=== PATIENT | female | born 1980 | race Caucasian/White ===

== ENCOUNTER 2016-09-04 12:57 | Observation (INO) | payer OTHER ==
[~2016-09-04] VITALS: Ht 160 cm; Wt 72.6 kg
--- NOTE | ~2016-09-04 | OR ---
PATIENT'S NAME: JOSHUA CURTIS [facility] AGE: 35 Y [address] ROOM: [address] [address] LOCATION: [facility] ADMIT DATE: 09/04/2016 OR/Procedure Report DISCHARGE DATE: FAMILY PHYSICIAN: PHYSICIAN, NO ATTENDING PHYSICIAN: JAIR CRUMP SURGEON: Jair Crump MD QI SPECIALIST: DATE OF PROCEDURE: 09/04/2016 PREOPERATIVE DIAGNOSIS: Ruptured ectopic . POSTOPERATIVE DIAGNOSIS: Ruptured ectopic . PROCEDURE PERFORMED: Laparoscopic right salpingectomy and evacuation of hemoperitoneum. ANESTHESIA: General. FINDINGS: 1 liter of clotted blood in the abdomen upon injury, ruptured ectopic in right fallopian tube near the cornua. Normal right ovary, left ovary, and fallopian tube adhered together. Normal uterus with 1 cm anterior subserosal fibroid. COMPLICATIONS: None. ESTIMATED BLOOD LOSS: 10 mL. INDICATIONS: The patient is a 35-year-old female with LMP making her around 11 weeks' . She presented to the ER complaining of abdominal pain. Her beta HCG quant was 2200 and she had an ultrasound that showed blood in the pelvis. Surgical exploration was recommended. Please see prior consent note in her H and P. DESCRIPTION OF PROCEDURE: The patient was taken to the operating room where she was placed under general anesthesia without complications. She was placed in dorsal lithotomy position. She was then prepped and draped in the usual sterile fashion. SCDs were in place. A speculum was placed in the patient's vagina. The cervix was visualized and a Hulka tenaculum was placed. The speculum was removed. Gloves were changed. 0.25% Marcaine was injected infraumbilically and a 5 mm incision was made. The Veress needle was placed into the abdomen and saline dropped through. Gas was hooked up on opening pressures less than 8 mmHg. The abdomen was insufflated to 15 mmHg. A 5 mm trocar was then placed. The camera was placed through this, and hemoperitoneum was noted with about a liter of clotted blood. 0.25% Marcaine was then injected in the left lower quadrant 2 cm superior and 2 cm medial to PATIENT'S NAME: JOSHUA CURTIS [facility] AGE: 35 Y [address] ROOM: [facility] [place], [place] [address] LOCATION: [facility] ADMIT DATE: 09/04/2016 OR/Procedure Report DISCHARGE DATE: FAMILY PHYSICIAN: , MAYI ATTENDING PHYSICIAN: JAIR CRUMP the anterior-superior iliac spine. A 10 mm incision was made. A 10 mm trocar was then placed. Evacuation of the hemoperitoneum was then performed, and a right ruptured ectopic was noted in the right fallopian tube just adjacent to the uterus. 0.25% Marcaine was injected in the right lower quadrant 2 cm superior and 2 cm medial to the anterior-superior iliac spine. A 5 mm incision was made and a 5 mm trocar was placed. The left fallopian tube and ovary were adhered together using the LigaSure device. The right fallopian tube was cauterized and cut along its entirety to where it meets the uterus. This was removed in an EndoCatch bag at the 10/11 port. Irrigation was again performed. Hemostasis was noted. All trocars were removed. The 10- mm port was closed 0 Polysorb. The fascia of this area was closed with 0 Polysorb suture. The incisions were then closed with 4-0 Polysorb in a subcuticular fashion. Steri-Strips and Band-Aids were placed for dressings. The speculum was replaced in the patient's vagina and the Hulka tenaculum was removed. Hemostasis was noted. Instruments, sponge, and needle counts were correct at the conclusion of the case. DISPOSITION: The patient was taken to the PACU in stable condition. MD JASBIR GRIFFIN/grisel /[id number] d: 09/05/16 0044 t: 09/12/16 0847, OPERATIVE SUMMARY
--- NOTE | ~2016-09-04 | ER ---
PATIENT'S NAME: JOSHUA CURTIS [facility] AGE: 35 Y [address] ROOM: [place] [address] LOCATION: [facility] ADMIT DATE: 09/04/2016 ER/Outpatient Report DISCHARGE DATE: 09/05/2016 FAMILY PHYSICIAN: PHYSICIAN, NO ATTENDING PHYSICIAN: Jair Crump TIME OF ARRIVAL: 1257 hours. TIME SEEN: 1312 hours. IDENTIFICATION: A 35-year-old female. CHIEF COMPLAINT: Abdominal pain. HISTORY OF PRESENT ILLNESS: The patient is a 35-year-old female who presents with syncope, vomiting, diarrhea, and abdominal pain. The patient had 2-3 small emesis. She has a diffuse abdominal pain and diarrhea x2. No blood in her stools. No dark, tarry, or black stools. She is lightheaded and actually passed out one time, she did not hit her head, and no loss of consciousness. She states that she had a miscarriage of August [address] was [address] Crump with a negative ultrasound at that time. The patient has also had some dysuria and felt like maybe she had a UTI, but has had no fever. ALLERGIES: NO KNOWN DRUG ALLERGIES. CURRENT MEDICATIONS: No current medications. MEDICAL PROBLEMS: No medical problems. SURGERIES: Prior surgeries include an appendectomy. FAMILY HISTORY: No pertinent family history identified. REVIEW OF SYSTEMS: Negative other than what is noted in the HPI. PATIENT'S NAME: JOSHUA CURTIS [facility] AGE: 35 Y [address] ROOM: [place] [address] LOCATION: [facility] ADMIT DATE: 09/04/2016 ER/Outpatient Report DISCHARGE DATE: 09/05/2016 FAMILY PHYSICIAN: PHYSICIAN, NO ATTENDING PHYSICIAN: Jair Crump PHYSICAL EXAMINATION: VITAL SIGNS: Blood pressure initially 93/52, pulse 84, temp 98.3, and sats 99% on room air. GENERAL: A 35-year-old female who appears acutely ill and is very pale and lightheaded. HEENT: Head: Normocephalic, atraumatic. Ears: TMs translucent both ears. Eyes: Pupils equal and reactive to light and accommodation. Extraocular movements intact. Nose: Mucosa pink. No lesions. Mouth: No lesions. Pharynx benign. NECK: Supple. No lymphadenopathy. LUNGS: Clear to auscultation. Breath sounds are equal. HEART: Regular rate and rhythm. ABDOMEN: Hypoactive bowel sounds. Slightly distended. Diffusely tender to minimal palpation. She does have some rebound and guarding. PELVIC: Exam not performed. EXTREMITIES: No edema. NEURO: The patient is alert and oriented x4. Cranial nerves 2 through 12 grossly intact. Motor strength 5/5 throughout. Sensation is intact to light touch. EMERGENCY DEPARTMENT COURSE: A 1 L of IV fluids was bolused at this time. Blood pressure improved to 104/51 and 117/51, heart rate remained 68-80. Stool was sent and C. diff negative. Procalcitonin less than 0.05. Lactate 1.7. Hemoglobin 11.6, hematocrit 35.5, platelets 221, white count 19,000 with 91% neutrophils. Sodium 141, potassium 4.2, chloride 107, CO2 22, BUN 9, and creatinine 0.7. Blood sugar 114. Liver enzymes normal. UA: Specific gravity 1.010, pH 8, 0- 2 white cells, 0-2 red cells, 2-5 epithelial cells, and few bacteria. O and P screen was negative. Stool culture pending fecal leukocytes, few white blood cells, occult blood negative. HCG 2282. Repeat hemoglobin at 1424 hours, which was just over 1 hour from the original was 11.7. INR is 1.0. Transvaginal ultrasound suspected blood within the pelvis and abdomen raising the concern of a ruptured ectopic, there is some heterogenicity and slight increased thickness of the endometrium measuring up to 11-mm, heterogeneous fluid was present throughout the pelvis with hypoechoic fluid adjacent to the liver and spleen concerning for hemorrhage. IMPRESSION: Ruptured ectopic . PLAN: The patient was resuscitated with volume IV fluids here in the emergency room. Hemoglobin was stable so clot was obtained and Dr. Crump was emergently consulted. The patient arrived to the emergency room at 1257 hours and was PATIENT'S NAME: JOSHUA CURTIS [facility] AGE: 35 Y [address] ROOM: [place] [address] LOCATION: [facility] ADMIT DATE: 09/04/2016 ER/Outpatient Report DISCHARGE DATE: 09/05/2016 FAMILY PHYSICIAN: PHYSICIAN, NO ATTENDING PHYSICIAN: Jair Crump seen at 1312 hours and was taken to the operating room at 1511 hours. Thirty minutes of critical care was provided in the emergency room for volume resuscitation for the hypotension and consultation with Radiology and Dr. Crump. MD JOE MEHTA/grisel /[id number] d: 09/05/167 t: 09/06/16 1427, OUTPATIENT REPORT
--- NOTE | ~2016-09-04 | HP ---
PATIENT'S NAME: JOSHUA CURTIS [facility] AGE: 35 Y [address] ROOM: [place] [address] LOCATION: [facility] ADMIT DATE: 09/04/2016 History & Physical DISCHARGE DATE: FAMILY PHYSICIAN: PHYSICIAN, NO ATTENDING PHYSICIAN: NICK ROTHMAN DATE OF SERVICE: CHIEF COMPLAINT: Abdominal pain. HISTORY OF PRESENT ILLNESS: The patient is a 35-year-old female, who presented to the ER with abdominal pain starting this morning. She did feel like over the past few days she had a UTI, but this morning, she had a sharp abdominal pain. Upon arrival to the ER, she was noted to have a blood pressure that was systolically in the 90s and appeared pale. Hemoglobin was checked and found to be 11.6. Beta quant hCG was checked and found to be 2282. An ultrasound was done that showed blood in the abdomen, likely a ruptured ectopic. The patient's white blood cell count was also noted to be elevated at 19. Procalcitonin was negative at 0.05, and her urinalysis was negative. PAST MEDICAL HISTORY: None. PAST SURGICAL HISTORY: Open appendectomy at age 6 for a nonruptured appendix. MEDICATIONS: None. ALLERGIES: NONE. FAMILY HISTORY: Noncontributory. REVIEW OF SYSTEMS: Negative except as noted in the HPI. SOCIAL HISTORY: The patient denies alcohol, tobacco, or drug use. PHYSICAL EXAMINATION: ABDOMEN: Soft, tender diffusely throughout. PATIENT'S NAME: JOSHUA CURTIS [facility] AGE: 35 Y [address] ROOM: [place] [address] LOCATION: [facility] ADMIT DATE: 09/04/2016 History & Physical DISCHARGE DATE: FAMILY PHYSICIAN: PHYSICIAN, NO ATTENDING PHYSICIAN: NICK ROTHMAN LABORATORY DATA: Hemoglobin initial check was 11.6; 2 hours later, it was 11.7. ASSESSMENT: The patient is a 35-year-old female with likely ruptured ectopic . PLAN: We will proceed to OR for laparoscopy evacuation of hemoperitoneum and removal of ectopic . The patient was counseled that this could be either in her fallopian tubes or ovaries which was not clear on the ultrasound and may necessitate removing one of her fallopian tubes and/or one of her ovaries. The patient was counseled about the risks of surgery to include, but are not be limited to bleeding, infection, damage to surrounding organs and tissues, including bowel, bladder, blood vessels, ureters, and nerves. She was also counseled on the possibility of needing to convert to laparotomy. She is also counseled on the possibility of needing additional procedures or hospitalizations due to any complications. The patient and her indicate understanding and consents were signed. MD JASBIR GRIFFIN/grisel /[id number] D: [id number] T: [id number] HISTORY & PHYSICAL
[2016-09-04 13:32] LABS: BASOPHIL # 0.1 K/uL (0.0-0.2); BASOPHIL % 0.3 %; EOSINOPHIL % 0.1 %; HEMATOCRIT 35.5 % (33.0-46.0); HEMOGLOBIN 11.6 g/dL (11.0-15.0); IMMATURE GRANULOCYTE # 0.1 K/uL (0.0-0.3); IMMATURE GRANULOCYTE % 0.4 %; LYMPHOCYTE % 5.1 %; MCH 28.8 pg (27.0-34.0); MCHC 32.7 gm/dL (32.0-36.5); MCV 88.1 fl (83.0-98.0); MONOCYTE # 0.5 K/uL (0.0-1.0); MONOCYTE % 2.7 %; MPV 11.7 fl (9.4-12.4); NEUTROPHIL # (ANC) 17.3 K/uL (1.8-7.8); NEUTROPHIL % 91.4 %; NRBC % 0 /100WBC (0-0.00); PLATELET COUNT 221 K/uL (150-450); RBC 4.03 M/uL (3.50-5.50); RDW-CV 12.7 % (11.9-14.6)
[2016-09-04 13:51] LABS: ALBUMIN 3.3 gm/dL (3.5-5.0); ALK PHOS 56 IU/L (33-138); ALT 16 IU/L (12-78); ANION GAP 16.2 (10.0-19.0); AST 11 IU/L (10-40); BLOOD UREA NITROGEN 9 mg/dL (6-24); CALCIUM 8.4 mg/dL (8.5-10.5); CHLORIDE 107 mMol/L (96-110); CO2 22 mMol/L (22-32); CREATININE 0.7 mg/dL (0.5-1.1); ESTIMATED GFR (MDRD EQUATION) > 60; POTASSIUM 4.2 mMol/L (3.7-5.1); SODIUM 141 mMol/L (135-145); TOTAL BILIRUBIN 0.4 mg/dL (0.0-1.5); TOTAL PROTEIN 6.1 g/dL (6.0-8.4)
[2016-09-04 14:28] LABS: HEMATOCRIT 36.9 % (33.0-46.0); HEMOGLOBIN 11.7 g/dL (11.0-15.0)
[2016-09-04 14:34] LABS: PROTIME 10.1 SECONDS (9.6-11.1)
[2016-09-04 14:58] LABS: BILIRUBIN URINE NEGATIVE (NEGATIVE); BLOOD URINE 25 /UL (NEGATIVE); COLOR URINE YELLOW (YELLOW); GLUCOSE URINE NEGATIVE (NEGATIVE); KETONE URINE 5 mg/dL (NEGATIVE); LEUKOCYTES URINE NEGATIVE /UL (NEGATIVE); NITRITE URINE NEGATIVE (NEGATIVE); PROTEIN URINE NEGATIVE (NEGATIVE); TURBIDITY URINE CLEAR (CLEAR); UROBILINOGEN URINE NORMAL (NORMAL)
[2016-09-04 15:05] LABS: RBC URINE 0-2 #/HPF (NEGATIVE); WBC URINE 0-2 #/HPF (NEGATIVE)
[2016-09-04 15:06] LABS: BACTERIA URINE FEW (NEGATIVE); MUCUS URINE 1+ (NEGATIVE)
[2016-09-04] MEDS ORDERED: NORCO 5-325 TA1 EACH PO (18:40)
[2016-09-04] MEDS ORDERED: IBUPROFEN800 MG PO (18:41)
--- NOTE | 2016-09-05 05:46 | NUR ---
Significant Event: Patient is a 35 year old female who presented to the ER with abdominal pain that started in the morning on . Patient was thought to have had a miscarriage on 08/24/16. When she presented to the ER her beta HCG was >2200 and she had an ultrasound that showed fluid in the pelvis. HGB on admit was 11.6. Patient underwent surgical exploration and was found to have approximately 1 liter of blood in her abdomen and a ruptured ectopic in the R) fallopian tube. Post operatively patient had persistent light headedness and was supbsequently admitted for observation. Since arrival to the floor patient has been afebrile, and all other VSS. She has been drinking well, and eating applesauce and jello without nausea or vomiting. She has ambulated to the bathroom and up in the halls x3 with a steady gait. [place] (1 tab) given x2 last at 0404 and Motrin (800mg) given x1 at 2147. Patient has a scant amount of bloody vaginal drainage noted. Abdominal incision x3 are dry and intact. in room throughout the night. Follow up:
[2016-09-05 06:26] LABS: BASOPHIL % 0.2 %; HEMOGLOBIN 8.6 g/dL (11.0-15.0); IMMATURE GRANULOCYTE # 0.1 K/uL (0.0-0.3); IMMATURE GRANULOCYTE % 0.4 %; LYMPHOCYTE # 1.1 K/uL (0.8-4.0); LYMPHOCYTE % 8.7 %; MCHC 32.2 gm/dL (32.0-36.5); MCV 89.9 fl (83.0-98.0); MONOCYTE # 0.7 K/uL (0.0-1.0); MONOCYTE % 5.3 %; MPV 11.5 fl (9.4-12.4); NEUTROPHIL # (ANC) 10.9 K/uL (1.8-7.8); NEUTROPHIL % 85.4 %; NRBC % 0 /100WBC (0-0.00); PLATELET COUNT 194 K/uL (150-450); RDW-CV 12.9 % (11.9-14.6); WBC 12.7 K/uL (4.0-11.0)
[2016-09-05 06:27] LABS: HEMATOCRIT 26.7 % (33.0-46.0); RBC 2.97 M/uL (3.50-5.50)
[2016-09-05] MEDS ORDERED: FEOSOL325 MG PO (11:27)
[2016-09-05] MEDS ORDERED: COLACE100 MG PO (11:28)
== END 2016-09-05 11:45 | disposition disaster alternative care site (69) ==
LOC: GMED 12:57 → GSDC 15:18 → GMSU 15:26 → GPED 20:17 → GSDC 20:26 → GPED 20:26
PROVIDERS: Family Medicine; ADMIT Obstetrics & Gynecology
PROC: 10T24ZZ Resection of Products of Conception, Ectopic, Percutaneous Endoscopic Approach (ICD-10-PCS; principal; 2016-09-04)
PROC: 0UB54ZZ Excision of Right Fallopian Tube, Percutaneous Endoscopic Approach (ICD-10-PCS; 2016-09-04)
DX: O00.10 Tubal pregnancy without intrauterine pregnancy (principal); Z90.49 Acquired absence of other specified parts of digestive tract; Z79.899 Other long term (current) drug therapy; R55 Syncope and collapse
CPT/HCPCS: G0378; J2001; J3010; J7030; J7120